=== PATIENT | male | born 1980 | race Caucasian/White ===

== ENCOUNTER 2017-12-15 08:29 | Emergency (ER) | payer OTHER ==
[~2017-12-15] VITALS: Ht 170.2 cm; Wt 74.8 kg
[~2017-12-15 08:29] MED LIST: Flomax0.4 MG PO; Norco 5-325 Ta1 EACH PO; Zofran Odt4 MG SL
== END 2017-12-15 09:32 | disposition home or self-care (01) ==
LOC: ER 08:29
DX: S50.02XA Contusion of left elbow, initial encounter (principal); S60.512A Abrasion of left hand, initial encounter; S09.90XA Unspecified injury of head, initial encounter; Z87.891 Personal history of nicotine dependence; Y04.2XXA Assault by strike against or bumped into by another person, initial encounter; Y99.0 Civilian activity done for income or pay
CPT/HCPCS: 73080; 90471; 90714; 99283

== ENCOUNTER 2020-12-16 14:48 | Emergency (ER) | payer BC ==
[~2020-12-16] VITALS: Ht 170.2 cm; Wt 74.8 kg
[2020-12-16] MEDS ORDERED: ZYRTEC10 M1 (15:05)
[2020-12-16] MEDS ORDERED: ALBU90OI INH (16:36)
== END 2020-12-16 16:44 | disposition home or self-care (01) ==
LOC: ER 14:48
DX: U07.1 COVID-19 (principal); R06.02 Shortness of breath; R43.8 Other disturbances of smell and taste; R19.7 Diarrhea, unspecified; Z87.891 Personal history of nicotine dependence
CPT/HCPCS: 99282

== ENCOUNTER 2022-10-12 18:19 | Emergency (ER) | payer BC ==
[~2022-10-12] VITALS: Ht 170.2 cm; Wt 77.1 kg
[~2022-10-12 18:19] MED LIST changes: +ALBU90OI INH; +ZYRTEC10 M1
[2022-10-12] MEDS ORDERED: LEVFLO500 PO (22:06)
== END 2022-10-12 22:37 | disposition home or self-care (01) ==
LOC: ER 18:19
DX: N45.3 Epididymo-orchitis (principal); Z87.891 Personal history of nicotine dependence; Z79.899 Other long term (current) drug therapy
CPT/HCPCS: 76870; A9270; J1885

== ENCOUNTER 2025-01-15 10:29 | Emergency (ER) | payer BC ==
[~2025-01-15] VITALS: Ht 170.2 cm; Wt 72.6 kg
[~2025-01-15 10:29] MED LIST changes: +LEVFLO500 PO
[2025-01-15] MEDS ORDERED: TRAZ100 PO (10:49)
[2025-01-15] MEDS ORDERED: MULVITA PO (10:50)
[2025-01-15] MEDS ORDERED: IBU800 M1 PO (10:50)
[2025-01-15] MEDS ORDERED: NS 1,000 ML IV SCH (10:55)
[2025-01-15 11:01] LABS: BASOPHILS ABSOLUTE AUTO 0.03 K/mm3 (0.00-0.23); BASOPHILS PERCENT AUTO 1 % (0-2); EOSINOPHILS ABSOLUTE AUTO 0.06 K/mm3 (0.00-0.68); EOSINOPHILS PERCENT AUTO 1 % (0-6); Hematocrit 39.8 % (37.0-53.0); Hemoglobin 13.7 g/dL (13.5-17.5); IMMATURE GRAN ABSOLUTE AUTO 0.01 K/mm3 (0.00-0.10); IMMATURE GRAN PERCENT AUTO 0 % (0-1); LYMPHOCYTES ABSOLUTE AUTO 1.65 K/mm3 (0.84-5.20); LYMPHOCYTES PERCENT AUTO 31 % (21-46); MONOCYTES ABSOLUTE AUTO 0.35 K/mm3 (0.16-1.47); MONOCYTES PERCENT AUTO 7 % (4-13); Mean Corpuscular HGB 28.4 pg (26.0-34.0); Mean Corpuscular HGB Conc 34.4 g/dL (31.5-36.5); Mean Corpuscular Volume 83 fL (80-100); Mean Platelet Volume 9.7 fL (9.1-12.4); NEUTROPHILS ABSOLUTE AUTO 3.17 K/mm3 (1.96-9.15); NEUTROPHILS PERCENT AUTO 60 % (41-73); Platelet Count 223 K/mm3 (150-400); RDW Standard Deviation 36.3 fL (35.1-46.3); Red Blood Cell Count 4.82 M/mm3 (4.30-5.90); White Blood Cell Count 5.27 K/mm3 (4.00-11.30)
[2025-01-15 11:30] LABS: Albumin, Blood 3.4 g/dL (3.4-5.0); Albumin/Globulin Ratio 1.2 (0.8-1.8); Bilirubin, Total 0.4 mg/dL (0.1-1.0); Bun/Creatinine Ratio 16.3 (12.0-20.0); Calcium, Blood 8.5 mg/dL (8.5-10.1); Creatinine, Blood 1.04 mg/dL (0.60-1.20); Globulin, Blood 2.9 g/dL (2.2-4.0); Potassium, Blood 3.8 mmol/L (3.5-5.5); Total Protein, Blood 6.3 g/dL (6.4-8.2)
[2025-01-15 13:00] VITALS: BP 101/62
[2025-01-15] MEDS ORDERED: ONDA4 PO (13:46)
[2025-01-15 14:28] LABS: Influenza A, PCR NEGATIVE (NEGATIVE); Influenza B, PCR NEGATIVE (NEGATIVE); Resp Syncytial Virus, PCR NEGATIVE (NEGATIVE); SARS-Cov-2 (COVID-19) PCR, MMC NEGATIVE (NEGATIVE)
== END 2025-01-15 14:03 | disposition home or self-care (01) ==
LOC: ER 10:29
PROVIDERS: Emergency Medicine
DX: R55 Syncope and collapse (principal); Z79.899 Other long term (current) drug therapy; Z79.1 Long term (current) use of non-steroidal anti-inflammatories (NSAID); Z87.891 Personal history of nicotine dependence
CPT/HCPCS: 0241U; 80053; 85025; 93005; 93010; 99284-25; J7030

== ENCOUNTER 2025-05-20 13:32 | Emergency (ER) | payer BC ==
[~2025-05-20] VITALS: Ht 167.6 cm; Wt 90.7 kg
[~2025-05-20 13:32] MED LIST changes: +IBU800 M1 PO; +MULVITA PO; +ONDA4 PO; +TRAZ100 PO
[2025-05-20 13:35] VITALS: BP 133/94
== END 2025-05-20 16:27 | disposition home or self-care (01) ==
LOC: ER 13:32
DX: S63.91XA Sprain of unspecified part of right wrist and hand, initial encounter (principal); X50.0XXA Overexertion from strenuous movement or load, initial encounter; Z87.891 Personal history of nicotine dependence
CPT/HCPCS: 73130; 99283-25; A9270